=== PATIENT | female | born 2000 | race African-American/Black ===

== ENCOUNTER → 2023-11-30 14:29 | Outpatient (REF) | payer OTHER, SELFPAY ==
[2023-11-30 16:23] LABS: Hepatitis B Surface Antigen Negative (Negative)
[2023-11-30 16:34] LABS: Rubella Positive
[2023-12-02 14:49] LABS: Mumps Virus IgG Positive; Rubeola (Measles) IgG Positive; Varicella Zoster IgG (VZV) Positive
== END ==
LOC: OHS 14:29
PROVIDERS: ATTENDING PHYSICIAN Nurse Practitioner Family
DX: Z23 Encounter for immunization (principal)
CPT/HCPCS: 36415; 86735; 86762; 86765; 86787; 87340